=== PATIENT | female | born 1975 | race Caucasian/White ===

== ENCOUNTER 2016-10-25 22:27 | Emergency (ER) | payer BC ==
[~2016-10-25] VITALS: Ht 162.6 cm; Wt 122.2 kg
[~2016-10-25 22:27] MED LIST: BCPILLS PO; FLNIN NAE; FLVHFA220 MT; LANS30CA41 PO; METR0.754 EX
[2016-10-25 22:29] VITALS: Ht 162.6 cm; Wt 122.2 kg
--- NOTE | 2016-10-26 02:07 | EMERGENCY ROOM VISIT NOTE ---
ED Visit Note First contact with patient: 23:13 CHIEF COMPLAINT: Neck mass HISTORY OF PRESENT ILLNESS: This 41-year-old female patient presents to the emergency department with her mother, complaining of a mass in the posterior right side of her neck, with pain radiating towards the right ear. The patient states she first noticed the mass on Tuesday night. She states it gradually became more sore for the past few days. Today, the patient was seen by her PCP at [facility] locally this morning. The patient states she was seen by a resident and as attending. She states the resident wanted to perform an ultrasound of the mouth, but the attending advised her to follow up with ENT. The patient was unable to get an appointment until 2 weeks from now. The patient states she had a similar issue approximately 10 years ago to the right neck, and was told at that time that it was a swollen lymph node with lymphadenitis. The patient states it remained swollen for several years. The patient states that approximately 8 PM today, she began noticing right ear pain. She states the ear began feeling numb, heavy, and clogged. The patient describes a "tension muscular type of thing with tingling up the lateral aspect of the right side of the scalp". The patient rates the pain as tingling and 2/ 10. The patient has taken nothing for the pain. The patient does not have pain of the arms and shoulders. The patient does report numbness and tingling radiating towards the right ear as described. The patient denies chest pain or shortness of breath. There was no head injury and no loss of consciousness. The patient denies headache, blurred vision, abdominal pain, nausea, or vomiting. The patient denies change in personality. REVIEW OF SYSTEMS: A 10 system review of systems was completed with positives and pertinent negatives listed in the HPI. ALLERGIES: Green peppers, bananas, eggs, ibuprofen MEDICATIONS: None PMH: Posterior cervical lymphadenopathy SOCIAL HISTORY: The patient lives locally with family. She denies drug, alcohol , tobacco use. PHYSICAL EXAM: VITALS: Vitals are noted on the nurse's note and reviewed by myself. Vital signs stable. GENERAL: This is a 41-year-old female, in no acute distress, nondiaphoretic, well-developed well-nourished. SKIN: Capillary reflex less than 2 seconds. HEENT: Normocephalic. PERRLA. EOMI. Nares patent. Mucous membranes moist. Thyroid normal. No thyromegaly, nodules, masses. Neck: There is a firm, mobile mass along the posterior cervical chain of lymph nodes. There is no induration, redness, warmth, swelling, or other concerning findings. The mass is not tender on palpation. It is approximately 1 cm in diameter. Supple without nuchal rigidity. Cervical spine is not tender to palpation. The patient denies tenderness of the paraspinal muscles bilaterally. There is no other lymphadenopathy. MUSCULOSKELETAL: The patient has full range of motion of the bilateral arms. Strength 5/5 of the bilateral upper extremities. The patient has no tenderness with movement of the neck. NEURO: Patient was alert and oriented to person place and time. Normal sensation to light and sharp touch. No focal neurologic deficits. RADIOLOGY: U/S Soft Tissue (mass) Right posterior neck: Preliminary Findings: Adenopathy suspected. Largest measures 1.7 cm. Right-sided retroauricular nodes measures 5mm. No definite abscess. Suggest further clinical follow-up and if clinically indicated, obtaining a CT neck with IV contrast if this does not improve over time. EMERGENCY DEPARTMENT COURSE: I examined the patient. I discussed with the patient options for workup versus treatment. An ultrasound of the mass was ordered by myself and reviewed by radiologist. This showed an adenopathy. I reviewed these findings the patient. Discharge instructions were reviewed with patient. The patient was discharged home in good condition. DIAGNOSIS: Right posterior cervical lymphadenopathy DISCHARGE INSTRUCTIONS & TREATMENT: You were seen today in the emergency department for a swollen lymph node. An ultrasound does reveal adenopathy. Use warm, moist compresses on the swollen node for comfort. You may use anti-inflammatories and/or Tylenol as directed. Do not use greater than 3000 mg Tylenol in a 24-hour period. If you experience a fever, redness, drainage from the mass, nausea, vomiting, body aches, chills, or other concerning symptoms, return to the emergency department for further evaluation. Please follow up with ENT at your appointment in 2 weeks as directed by your PCP. Current/Historical Medications No Active Prescriptions or Reported Meds Allergies Uncoded Allergies: GREEN PEPPERS (Allergy, Mild, UNKNOWN, 07/31/10) BANANAS (Allergy, Mild, UNKNOWN, 07/31/10) EGGS (Allergy, Mild, UNKNOWN, 07/31/10) Vital Signs Date Time Temp Pulse Resp B/P (MAP) Pulse Ox O2 Delivery O2 Flow Rate FiO2 10/26/16 00:37 74 18 154/89 96 Room Air 10/25/16 22:29 36.7 92 18 150/91 98 Room Air Departure Information Impression Primary Impression: Posterior cervical lymphadenopathy Dispostion Home / Self-Care Condition GOOD Prescriptions No Active Prescriptions or Reported Meds Referrals Lizzy Kaiser D.O. (PCP) Patient Instructions Lymphadenopathy, My [facility] Additional Instructions You were seen today in the emergency department for a swollen lymph node. An ultrasound does reveal adenopathy. Use warm, moist compresses on the swollen node for comfort. You may use anti-inflammatories and/or Tylenol as directed. Do not use greater than 3000 mg Tylenol in a 24-hour period. If you experience a fever, redness, drainage from the mass, nausea, vomiting, body aches, chills, or other concerning symptoms, return to the emergency department for further evaluation. Please follow up with ENT at your appointment in 2 weeks as directed by your PCP.
[2016-10-26 02:12] VITALS: BP 148/83; PULSE 74; TEMP 36.7; O2SAT 96
--- NOTE | 2016-10-26 06:55 | DIAGNOSTIC IMAGING REPORT ---
SOFT TISS HEAD/NECK-THYROID CLINICAL HISTORY: 41 years-old Female with Right posterior neck swelling/mass/node. COMPARISON: CT chest 03/12/2013 TECHNIQUE: Multiple real time sonographic images of the neck were obtained accessing diez scale appearance and color doppler flow. FINDINGS: Within the area of interest within the right lateral neck, there is an ovoid somewhat peripherally lobulated structure with central echogenic vascular hilum compatible with a lymph node which overall measures 1.6 x 1.7 x 1.0 cm. The anterior hypoechoic cortex of this node is thickened, 6 mm. Additional area of concern is present posterior to the patient's right ear corresponding to a hypoechoic ovoid wider than tall lesion within the subcutaneous tissues, 0.6 x 0.4 x 0.5 cm which is nonspecific without internal vascularity or posterior features. This suggests an additional lymph node. No drainable fluid collections are identified. IMPRESSION: Areas of palpable concern correlate with lymph nodes of the right neck and retroauricular region. The right lateral neck lymph node is mildly enlarged with thickened cortex. These findings are nonspecific and follow-up is recommended to exclude progressive abnormality. The above report was generated using voice recognition software. It may contain grammatical, syntax or spelling errors. Electronically signed by: Alan Jacobsen M.D. 10/26/2016 6:53 AM Dictated Date/Time: 10/26/2016 6:50 AM
== END 2016-10-26 02:21 | disposition home or self-care (01) ==
LOC: C.EDB 22:28
DX: R59.0 Localized enlarged lymph nodes (principal)

== ENCOUNTER → 2016-11-22 | Outpatient (CLI) | payer BC ==
[~2016-11-22] MED LIST changes: -BCPILLS PO; -FLNIN NAE; -FLVHFA220 MT; -LANS30CA41 PO; -METR0.754 EX; +OPTIRAY 320 IV PRN
--- NOTE | 2016-11-22 13:27 | DIAGNOSTIC IMAGING REPORT ---
CT SOFT TISSUE NECK WITH CT DOSE: 578.32 mGy.cm CLINICAL HISTORY: R22.1 right neck mass TECHNIQUE: Helical images were acquired during intravenous administration of 121 cc of Optiray 320. A dose lowering technique was utilized adhering to the principles of ALARA. COMPARISON STUDY: Ultrasound study dated 10/26/2016 FINDINGS: The visualized portions of the lung apices are unremarkable. No thyroid masses are visualized. No salivary gland masses are visualized. There are borderline enlarged right-sided jugular digastric lymph nodes the largest of which measures 14 mm. There is a mildly enlarged right posterior triangle cervical lymph node measuring 14 mm. There is a 7 mm right parotid gland nodule likely representing an intraparotid lymph node. There are no fluid collections suspicious for abscess. There is no evidence of airway compromise. No mucosal space masses are visualized. IMPRESSION: 1. Mildly enlarged right cervical lymph nodes. Clinical follow-up is advocated. If these nodules persist or increase in size, ultrasound-guided fine-needle aspiration biopsy could be obtained in follow-up for tissue diagnosis Electronically signed by: Joseph Thurman M.D. 11/22/2016 1:26 PM Dictated Date/Time: 11/22/2016 1:19 PM
== END | disposition home or self-care (01) ==
LOC: C.CTS 12:48
DX: R22.1 Localized swelling, mass and lump, neck (principal)

== ENCOUNTER → 2016-11-24 | Outpatient (CLI) | payer BC ==
--- NOTE | 2016-11-24 14:47 | DIAGNOSTIC IMAGING REPORT ---
PELVIC COMPLETE NON OB CLINICAL HISTORY: EXCESSIVE AND FREQUENT MENSTRUATION WITH REG CYCLE COMPARISON STUDY: 04/07/2009 FINDINGS: The uterus measured 8.7 cm. The endometrial stripe measured 12 mm unchanged from the prior exam. The right ovary measured 3.4 cm with normal vascular flow. 1 cm follicular cyst.. The left ovary measured not well seen. There is no ultrasonographic evidence of ovarian torsion. It should be noted that ovarian torsion can be present with normal Doppler ultrasonographic findings. There was no evidence of pathologic free pelvic fluid. IMPRESSION: Slight endometrial prominence at 12 mm unchanged from the prior study. 2. 1 cm follicular cyst right ovary. 3. Otherwise negative study. 4. Non visibility left ovary possibly secondary to overlying bowel content The above report was generated using voice recognition software. It may contain grammatical, syntax or spelling errors. Electronically signed by: Leonard London M.D. 11/24/2016 2:45 PM Dictated Date/Time: 11/24/2016 2:44 PM
== END | disposition home or self-care (01) ==
LOC: C.ULTR 13:46
PROVIDERS: ATTEND Nurse Practitioner
DX: N92.0 Excessive and frequent menstruation with regular cycle (principal); N83.01 Follicular cyst of right ovary